=== PATIENT | female | born 1940 | race Caucasian/White ===

== ENCOUNTER 2018-06-13 15:48 | Emergency (ER) | payer MEDICARE ==
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
[2018-06-13 16:35] VITALS: BP 151/70
== END 2018-06-13 18:00 | disposition home or self-care (01) ==
LOC: UCEAST 15:48
DX: S01.81XA Laceration without foreign body of other part of head, initial encounter (principal); S09.90XA Unspecified injury of head, initial encounter; I10 Essential (primary) hypertension; V49.40XA Driver injured in collision with unspecified motor vehicles in traffic accident, initial encounter; Y92.9 Unspecified place or not applicable
CPT/HCPCS: 12011; 70450; 72125; 99211; G0463

== ENCOUNTER 2019-05-09 18:00 | Emergency (ER) | payer MEDICARE ==
[2019-05-09 18:35] VITALS: BP 153/57
--- NOTE | 2019-05-09 19:24 | UC ---
Minor Trauma HPI - HPI Summary HPI Summary: The patient is a 78-year-old female that slipped and fell on ice yesterday as she was walking upstairs to her door. She fell flat on her face injuring her nose. She denies any headache. She denies any neck pain. She states her nose is very tender and swollen. She sustained a laceration over the bridge of her nose. She had epistaxis from her right nostril. She denies any other injury. There has been no change in her mental status. According to her daughter she has been acting appropriately. She has had no nausea vomiting or dizziness. - History of Current Complaint Chief Complaint: UCHeadInjury Stated Complaint: FACIAL INJURY Time Seen by Provider: 05/09/19 19:16 Hx Obtained From: Patient Hx Last Menstrual Period: post Onset/Duration: Sudden Onset Onset Of Pain: Immediate Severity Initially: Moderate Severity Currently: None Pain Intensity: 0 Pain Scale Used: 0-10 Numeric Mechanism Of Injury: Fall From A Standing Position Aggravating Factor(s): Other: - touch Alleviating Factor(s): Nothing Associated Signs And Symptoms: Positive: Ecchymosis, Swelling. Negative: Loss Of Consciousness Body - Head: 1 - swollen/tender/laceration - Risk Factors Penetrating Injury Risk Factors: Negative - Allergies/Home Medications Allergies/Adverse Reactions: Allergies Allergy/AdvReac Type Severity Reaction Status Date / Time No Known Allergies Allergy Verified 05/09/19 18:35 Home Medications: Home Medications Galantamine (NF) 24 mg PO QAM 05/09/19 [History Confirmed 05/09/19] Psyllium Husk [Metamucil] 0.52 gm PO DAILY 05/09/19 [History Confirmed 05/09/19] PMH/Surg Hx/FS Hx/Imm Hx Previously Healthy: Yes Cardiovascular History: Hypertension Other History Of: Negative For: HIV - Surgical History Surgical History: Yes Surgery Procedure, Year, and Place: PARTIAL HYSTERECTOMY. TONSILECTOMY - Family History Known Family History: Positive: Hypertension, Non-Contributory - Social History Alcohol Use: Occasionally Substance Use Type: None Smoking Status (MU): Never Smoked Tobacco Review of Systems All Other Systems Reviewed And Are Negative: Yes Constitutional: Positive: Negative Skin: Positive: Bruising Eyes: Positive: Negative ENT: Positive: Epistaxis - resolved Respiratory: Positive: Negative Cardiovascular: Positive: Negative Gastrointestinal: Positive: Negative Genitourinary: Positive: Negative Motor: Positive: Negative Neurovascular: Positive: Negative Musculoskeletal: Positive: Negative Neurological: Positive: Negative Psychological: Positive: Negative Physical Exam Triage Information Reviewed: Yes Appearance: Well-Appearing, No Pain Distress, Well-Nourished Vital Signs: Initial Vital Signs Temp 98.1 F 05/09/19 18:29 Pulse 100 05/09/19 18:29 Resp 16 05/09/19 18:29 BP 153/57 05/09/19 18:29 Pulse Ox 100 05/09/19 18:29 Vital Signs Reviewed: Yes Eyes: Positive: Conjunctiva Clear, Other: - bilateral black eyes/no orbital rim tenderness ENT: Positive: Pharynx normal, TMs normal, Uvula midline, Other - swollen bridge of nose/sealed laceration/no septal hematoma/no active bleeding. Negative: Hearing grossly normal - decreased, Tonsillar swelling, Tonsillar exudate, Trismus, Muffled voice, Hoarse voice, Sinus tenderness Neck: Positive: Supple, Nontender, No Lymphadenopathy Respiratory: Positive: Lungs clear, Normal breath sounds, No respiratory distress Cardiovascular: Positive: RRR, No Murmur Bowel Sounds: Positive: Present Musculoskeletal: Positive: ROM Intact, No Edema Neurological: Positive: Alert, Other: - non focal exam, GCS 15/15 Psychological Exam: Normal Skin Exam: Other - about a 5 mm laceration overlying nasal bridge Diagnostics - Radiology No standard instances Radiology Interpretation Completed By: ED Physician Summary of Radiographic Findings: displaced nasal bone fracture Minor Trauma Course/Dx - Differential Dx/Diagnosis Provider Diagnosis: Open displaced fracture of nasal bone Discharge ED - Sign-Out/Discharge Documenting (check all that apply): Patient Departure All imaging exams completed and their final reports reviewed: No - Discharge Plan Condition: Stable Disposition: HOME Prescriptions: Cephalexin CAP* [Keflex CAP*] 500 mg PO TID #21 cap Patient Education Materials: Nasal Fracture (ED) Referrals: Marcin Dsouza MD [Medical Doctor] - As Soon As Possible Additional Instructions: You have an OPEN DISPLACED nasal bone fracture rest ice tylenol or aleve for pain YOU NEED TO BE RECHECKED DORA for severe headache change in mental status vomiting this nasal fracture needs to be followed by an ENT specialist - Billing Disposition and Condition Condition: STABLE Disposition: Home
[2019-05-09] MEDS ORDERED: Cephalexin CAP* 500 MG PO ONE (19:56)
[2019-05-09] MEDS ORDERED: Tetan/Diph/Pertus SYR(Tdap)* 0.5 ML SYR(BOOSTRIX) use SYR contains LATEX IM ONE (19:56)
--- NOTE | 2019-05-10 07:25 | UC ---
- Progress Note Progress Note: no change in initial management - EKG/XRAY/CT XRAY: nasal bone - displaced fracture of nasal bones Course/Dx - Diagnoses Provider Diagnoses: Open displaced fracture of nasal bone Discharge ED - Sign-Out/Discharge Documenting (check all that apply): Post-Discharge Follow Up All imaging exams completed and their final reports reviewed: Yes - Discharge Plan Condition: Stable Disposition: HOME Prescriptions: Cephalexin CAP* [Keflex CAP*] 500 mg PO TID #21 cap Patient Education Materials: Nasal Fracture (ED) Referrals: Marcin Dsouza MD [Medical Doctor] - As Soon As Possible Additional Instructions: You have an OPEN DISPLACED nasal bone fracture rest ice tylenol or aleve for pain YOU NEED TO BE RECHECKED DORA for severe headache change in mental status vomiting this nasal fracture needs to be followed by an ENT specialist - Billing Disposition and Condition Condition: STABLE Disposition: Home
== END 2019-05-09 20:27 | disposition home or self-care (01) ==
LOC: UCEAST 18:00
DX: S02.2XXB Fracture of nasal bones, initial encounter for open fracture (principal); I10 Essential (primary) hypertension; W00.0XXA Fall on same level due to ice and snow, initial encounter; Y93.01 Activity, walking, marching and hiking; Y92.9 Unspecified place or not applicable
CPT/HCPCS: 70160; 90471; 90715; 99212; A9270-GY; G0463